=== PATIENT | male | born 1995 | race Caucasian/White ===

== ENCOUNTER 2018-05-21 00:43 | Emergency (ER) | payer MEDICAID ==
[~2018-05-21] VITALS: Ht 177.8 cm; Wt 75.0 kg
[2018-05-21 00:45] VITALS: BP 118/74
--- NOTE | 2018-05-21 00:50 | NUR ---
PATIENT AMBULATED TO ER BED 12.
--- NOTE | 2018-05-21 00:58 | NUR ---
PT C/O VOMITING BLOOD X 20 MIN [employer] CLAIM [employer]. PT REPORTS TONSILLECTOMY X 5 DAYS AGO. PT DENIES N/V. PT REPORTS FEELING SCABS OF SURGICAL SITE COME OFF AND BLEEDING STARTED AFTER THAT. PT DENIES DIIFCULTY BREATHING. SPEECH IS CLEAR WITH NO PROBLEMS. SMALL AMOUNT OF BLOOD NOTED ON TONSILS UPON ASSESSMENT. PT PLACED IN BED. PENDING MD DAY.
[2018-05-21] MEDS ORDERED: NACL 0.9% IV STA (01:00)
[2018-05-21] MEDS ORDERED: TRANEXAMIC ACID IV STA (01:00)
[2018-05-21] MEDS ORDERED: TRANEXAMIC ACID 1,000 MG/10 ML VIAL IV ONE (01:12)
[2018-05-21 01:24] LABS: BASOPHILS % (AUTO) 0.5 % (0.0-2.0); EOSINOPHILS # (AUTO) 0.1 K/uL (0-0.4); EOSINOPHILS % (AUTO) 1.2 % (0.0-4.0); HEMOGLOBIN 14.3 g/dL (12.0-18.0); LYMPHOCYTES # (AUTO) 0.9 K/uL (2.0-11.5); LYMPHOCYTES % (AUTO) 12.6 % (20.5-51.1); MEAN CORPUSCULAR HEMOGLOBIN 29 pg (27-31); MEAN CORPUSCULAR HGB CONC 35 g/dL (33-37); MEAN CORPUSCULAR VOLUME 82.8 fL (80-94); MONOCYTES # (AUTO) 1.2 K/uL (0.8-1.0); MONOCYTES % (AUTO) 15.4 % (1.7-9.3); NEUTROPHILS # (AUTO) 5.3 K/uL (1.8-7.7); NEUTROPHILS % (AUTO) 70.3 % (42.2-75.2); PLATELET COUNT (AUTO) 242 K/uL (140-450); RED BLOOD CELL COUNT(AUTO) 4.95 MIL/uL (4.20-6.10); RED CELL DISTRIBUTION WIDTH 12.8 % (11.6-13.7); WHITE BLOOD COUNT (AUTO) 7.5 K/uL (4.8-10.8)
[2018-05-21] MEDS ORDERED: NACL 0.9% 1,000 ML IV ONE (01:30)
[2018-05-21 01:47] LABS: ALBUMIN 3.6 g/dL (3.4-5.0); ANION GAP 11.5 (8-16); CARBON DIOXIDE 29.2 mmol/L (21-32); CREATININE 0.8 mg/dL (0.7-1.3); POTASSIUM 3.7 mmol/L (3.5-5.1); TOTAL BILIRUBIN 0.5 mg/dL (0.0-1.0)
--- NOTE | 2018-05-21 02:26 | NUR ---
Patient to be transferred to [facility]. Is being transferred due to CONTINUITY OF CARE. Receiving facility has accepting physician and available space. ER physician has signed transfer form. Patient or responsible constitution party has agreed to transfer and signed form. Patient belongings inventoried and will be sent with patient. Copy of nursing notes, lab reports, EKG, Physicians Orders and X-rays to be sent with patient. Report called to MODE ESCALONA at receiving facility. [facility] ambulance service has been called for transfer. ETA is 30 MINS.
--- NOTE | 2018-05-21 02:55 | NUR ---
[facility] ARRIVAL FOR TRANSPORT. REPORT GIVEN TO MAYA TAVERAS.
[2018-05-21 02:58] VITALS: BP 122/75
== END 2018-05-21 02:59 | disposition short-term general hospital (02) ==
LOC: MED 00:43
DX: J95.830 Postprocedural hemorrhage of a respiratory system organ or structure following a respiratory system procedure (principal); K92.0 Hematemesis; J45.909 Unspecified asthma, uncomplicated
CPT/HCPCS: 36415; 80053; 85025; 86886; 86900; 86901; 96374; 99285; J3490; J7030